=== PATIENT | female | born 1945 | race Caucasian/White ===

== ENCOUNTER → 2016-11-30 | Outpatient (CLI) | payer MEDICARE ==
[~2016-11-30] MED LIST: ASPI-496 PO; CALC1CAP8 PO; CHOL400T2 PO; CRAN300T PO; CYAN10005 PO; DOCU100C8 PO; EZET10TA3 PO; GABA300C10 PO; MELO-184 PO; MOVE FREE ULTR1 EACH PO; MULT-717 PO; OMEG1CAP23 PO; PYRI100T2 PO; ROPI0.5T2 PO; UBID100C24 PO; VITA400C43 PO; magnesium PO
== END | disposition home or self-care (01) ==
LOC: CFH 07:18
PROVIDERS: ATTEND Internal Medicine
DX: N28.1 Cyst of kidney, acquired (principal)
CPT/HCPCS: 76700